=== PATIENT | male | born 1940 | race Caucasian/White ===

== ENCOUNTER → 2025-05-13 07:50 | Outpatient (REF) | payer MEDICARE, SELFPAY | LOC: RAD 07:50 | PROVIDERS: ATTENDING PHYSICIAN Internal Medicine Cardiovascular Disease; FAMILY PHYSICIAN Internal Medicine | DX: I71.40 Abdominal aortic aneurysm, without rupture, unspecified (principal) | CPT/HCPCS: 76770 ==

== ENCOUNTER → 2025-06-08 13:57 | Outpatient (REF) | payer MEDICARE, SELFPAY | LOC: RCS 13:57 | PROVIDERS: ATTENDING PHYSICIAN Internal Medicine Cardiovascular Disease; FAMILY PHYSICIAN Internal Medicine | DX: I77.810 Thoracic aortic ectasia (principal) | CPT/HCPCS: 93306 ==